=== PATIENT | male | born 2000 | race Caucasian/White ===

== ENCOUNTER 2024-11-30 22:11 | Emergency (ER) | payer MEDICAID ==
[~2024-11-30] VITALS: Ht 175.3 cm; Wt 69.0 kg
[2024-11-30 22:32] VITALS: O2SAT 100
[2024-12-01] MEDS ORDERED: LIDO700A30 TP (00:10)
[2024-12-01] MEDS ORDERED: IBUP-2029 MT (00:10)
[2024-12-01] MEDS ORDERED: METH-653 MT (00:10)
[2024-12-01] MEDS: METHOCARBAMOL 500MG TABLET PO ONE (00:30)
[2024-12-01] MEDS: KETOROLAC 30MG/ML VIAL IM ONE (00:30)
[2024-12-01 02:02] VITALS: BP 121/80; PULSE 78; RESP 16; TEMP 37.1; O2SAT 100
== END 2024-12-01 02:06 | disposition home or self-care (01) ==
LOC: ER 22:11
DX: S33.5XXA Sprain of ligaments of lumbar spine, initial encounter (principal); X50.0XXA Overexertion from strenuous movement or load, initial encounter; Y93.89 Activity, other specified; Y92.89 Other specified places as the place of occurrence of the external cause; Y99.8 Other external cause status
CPT/HCPCS: 99283; 96372; J1885

== ENCOUNTER 2024-12-02 10:29 | Emergency (ER) | payer MEDICAID ==
[~2024-12-02] VITALS: Ht 175.3 cm; Wt 68.0 kg
[~2024-12-02 10:29] MED LIST: IBUP-2029 MT; LIDO700A30 TP; METH-653 MT
[2024-12-02 10:31] VITALS: O2SAT 100
[2024-12-02 11:14] VITALS: BP 120/62; PULSE 75; RESP 16; TEMP 36.7; O2SAT 100
== END 2024-12-02 11:16 | disposition home or self-care (01) ==
LOC: ER 10:29
DX: M54.9 Dorsalgia, unspecified (principal)
CPT/HCPCS: 99281